=== PATIENT | female | born 1955 | race Caucasian/White ===

== ENCOUNTER 2023-08-16 01:11 | Emergency (ER) | payer MEDICARE, BC ==
[2023-08-16] MEDS: Tranexamic Acid 1,000 MG/10 ML Vial TOP ONE (02:01)
== END 2023-08-16 03:11 | disposition home or self-care (01) ==
LOC: JP.ED 01:11
DX: R04.0 Epistaxis (principal); J45.909 Unspecified asthma, uncomplicated; Z79.899 Other long term (current) drug therapy; Z88.8 Allergy status to other drugs, medicaments and biological substances
CPT/HCPCS: 30903; 99283-25